=== PATIENT | female | born 1965 | race Caucasian/White ===

== ENCOUNTER 2024-01-05 13:41 | Outpatient (AMB) | payer OTHER, SELFPAY ==
--- NOTE | 2024-01-05 14:04 | HO.SPINEOV ---
Intake Visit Reasons: low back pain/sciatica Intake Note: Ms. Issa is here today c/o back pain. Allergies clavulanic acid [From Augmentin] Allergy (Unknown, Verified 01/05/24 14:09) Unknown Penicillins Allergy (Unknown, Verified 01/05/24 14:09) Unknown amoxicillin [From Augmentin] Allergy (Verified 01/05/24 14:09) Unknown levoquin Allergy (Uncoded 01/05/24 14:08) Unknown Assessment & Plan Assessment & Plan (1) Lumbar disc herniation: Code(s): M51.26 - Other intervertebral disc displacement, lumbar region Category: Medical Plan Dear Monica, Thank you for referring Mrs Issa to our office today. This is a 58-year-old female presents to the office today for evaluation of a left leg radiculopathy that started on October 27. She tells me she was leaning forward to put some makeup on felt some pain in her back. She had an important meeting to go to so she just carried on with things. She thought it might be a little bit better but a few days later she felt significant worsening of her pain but now also radiating down her left leg into her calf. She was actually in bed trying to lay down and became unable to stand. She had to have the ambulance called to get her out of bed. She was treated with pain medications including Vicodin, gabapentin as well as all the usual [id number] medications like Motrin, Tylenol etc.. She developed weakness of her left foot and numbness of her left foot during these events as well. She has had some relief of the pain but she is still dealing with constant daily pain down her leg going into her calf and foot. The weakness has not gotten worse but it is unchanged as well as the numbness going into the top of her foot and into her big toe. 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 She remains on the medications Vicodin gabapentin Tylenol, ice packs etc.. She had an MRI showing a herniated disc with L5 foraminal compression. PMH: She is otherwise healthy, history of anxiety, depression, low blood pressure, hysterectomy, kidney stones, but denies any heart attacks, strokes, liver disorders, kidney disorders, bleeding disorders, Social hx: She does not smoke, drink use any recreational drugs Medications: Lamictal, atorvastatin, Zoloft, magnesium, gabapentin and Vicodin Allergies: Penicillin, erythromycin, doxycycline, Augmentin Levaquin Physical exam: She is standing with assistance, unable to get up on the examining table without assistance. She has complete loss of movement of the extensor hallucis longus and 3/5 weakness of her left tibialis. Reflexes are intact at the patella and the Achilles. Imaging review: There is a lumbar MRI done in [facility]. It is of suboptimal quality but there appears to be an acute herniated disc fragment behind the body of L5 and on the axial imaging there appears to be a piece of it tucked up against the medial portion of the L5 nerve as it enters the foramen. There other degenerative changes. Impression: 58-year-old female presents with an acute L5 radiculopathy who appears to have fairly aggressive nerve injury related to a disc herniation which is coming out of the L5-S1 disc space. The imaging is suboptimal, I am not sure if it is motion artifact or the lack of depth of the imaging but there does appear to be a piece of disc behind the body of L5 and on the axial imaging a piece extending into the L5 foramen. Because of the weakness of her foot and the severity of her pain in addition to the failure of conservative treatment this is something Dr. Flores would typically offer the patient a left L5-S1 microdiskectomy. I will need to review this with him to decide the final approach but I think a standard midline approach would be reasonable. I do not think the disc extends out past the foramen. I have tentatively put her on the books for January 21 but will call her to confirm once I talked to him. I made it clear to her that the weakness and numbness in the foot is likely permanent. The objective of surgery would be to help the severe leg pain. I quoted 90% success rate. I will call her in a Medrol Dosepak just to try to see her through until the surgery. Pt was given risk and benefits of surgery including but not limited to infection, hematoma , nerve injury,durotomy, weakness,bowel/bladder injury, persistent pain, recurrent disc herniation as well as the option to continue with conservative treatment and patient wishes to proceed with surgery. Pt is aware they should stop their motrin, aspirin 7 days prior to surgery. All questions were answered to the best of our ability. If there is anything about this patients medical history that we have overlooked or concerns you have about us proceeding with surgery we would appreciate any input you can offer. Thank you for allowing us to care for your patient. The total time spent with this visit with this patient was 45 minutes reviewing history, physical exam, lumbar imaging review, and implementation of treatment plan or further diagnostic testing Isaac Flores MD,PhD [facility] Medications: New methylprednisolone take as directed on package 4 mg PO DAILY 21 ea 0RF Coding Level of Care Code New Pt Level 4 (09777) Diagnoses Lumbar disc herniation M51.26
== END 2024-01-05 16:44 | disposition home or self-care (01) ==
PROVIDERS: Referring Provider Specialist/Technologist Athletic Trainer; Visit Provider Physician Assistant
DX: M51.26 Other intervertebral disc displacement, lumbar region (principal)
CPT/HCPCS: 99204

== ENCOUNTER → 2024-01-05 13:41 | Outpatient (BNVA) | payer OTHER, SELFPAY | PROVIDERS: Visit Provider Physician Assistant ==

== ENCOUNTER 2024-01-22 07:49 | Day surgery (SDC) | payer OTHER, SELFPAY ==
[2024-01-14 10:08] VITALS: BMI 31.3
--- NOTE | ~2024-01-22 | FL_ITS ---
EXAMINATION: XR FLUOROSCOPY WITH IMAGES CLINICAL INFORMATION: L5-S1 microlumbar discectomy. COMPARISON: None available. TECHNIQUE: Fluoroscopy Supervised By: Dr. Omer Flores Fluoroscopy Time: 0 Seconds Cumulative Dose: 1.28 mGy-cm DAP: 0.290 Gy-cm2 Images: 1 FINDINGS: Intraoperative fluoroscopy and spot films were performed during a procedure in the OR. Probe is present at the L5-S1 disc space. Please correlate with Dr. Omer Flores' report for complete details. FL/FL guidance in OR IMPRESSION: Intraoperative fluoroscopy and spot films were obtained. Please see Dr. Omer Flores' report for complete details.
--- NOTE | 2024-01-22 07:37 | P.DS_ITS ---
DS: Providers Provider Date of Service: 01/22/24 Date of discharge: 01/22/24 Primary care physician: Deana Greene NP Admitting clinician: Keshawn Flores DS: Diagnosis Discharge Diagnosis (1) Lumbar disc herniation: Status: Acute DS: Summary Time Attestation Discharge Coordination Time (in mins): 5 Quality: Safe Use of Opioids Does Pt have an Active Cancer Diagnosis on the Problem List?: No Quality: Stroke Does the patient have a stroke diagnosis?: No Physical Exam Vital Signs: Vital Signs: BMI result Body Mass Index 31.3 Discharge Plan Discharge Patient Disposition: Home, Self-Care Referrals: Deana Greene NP [Primary Care Provider] - 1 Week Discharge Medications: New docusate sodium [Colace] 100 mg capsule 100 mg PO BID Qty: 20 0RF hydrocodone-acetaminophen 5-325 mg tablet 1 tab PO Q6H PRN (Reason: pain) Qty: 20 0RF Rx Instructions: Partial Fill upon patient request. Continued lamotrigine [Lamictal] 200 mg Tablet 200 mg PO BID atorvastatin 10 mg Tablet 10 mg PO BEDTIME hydrocodone-acetaminophen 5-325 mg Tablet 1 tab PO BID PRN (Reason: Pain) sertraline 100 mg Tablet 100 mg PO QAM lorazepam 0.5 mg Tablet 0.5 mg PO BID PRN (Reason: Anxiety) gabapentin 300 mg Capsule 300 mg PO BID sertraline 25 mg Tablet 25 mg PO QAM gabapentin 300 mg Capsule 600 mg PO BEDTIME magnesium 250 mg Tablet 500 mg PO BEDTIME solifenacin [Vesicare] 5 mg Tablet 5 mg PO QAM cholecalciferol (vitamin D3) [Vitamin D3] 50 mcg (2,000 unit) Capsule 50 mcg PO 3XW albuterol sulfate [Ventolin HFA] 90 mcg/actuation Hfa Aerosol Inhaler 2 puff INHALATION Q4-6H PRN (Reason: Shortness Of Breath Or Wheezing) Discharge Orders: Discharge Order (Routine); Ordered 01/22/24 Ordered By: Isaac Ha Diet: Advance to usual diet Activity on Discharge: As tolerated Activity Restrictions/Additional Instructions: After your spinal surgery we ask you to observe the following restrictions/guidelines: Activity: It is normal to feel some discomfort as you increase your activity, but that will improve with time. We ask you avoid heavy lifting or acitivities that cause pain. As a general rule, 8lbs is a safe limit for lifting right after surgery. Walk as much as you feel comfortable but not to exhaustion. You will feel extra tired the first few days after surgery. Stay well hydrated. It is OK to walk up and down stairs You may return to driving when you are off narcotics (such as vicodin, oxycodone, dilaudid, etc), and you are back to normal functional capacity. If you have any concerns please check with office before driving. Return to work is specific to each patient and each surgery, so please speak with your doctor/PA at first follow up. Please bring paperwork such as FMLA at that time if you need it filled out. Medications: For optimum pain control, it is best to start with a combination of 500 mg of Tylenol every 4 hours with 600 mg of Motrin every 8 hours, and use narcotics as needed in between for breakthrough pain. We will give you a short supply of narcotics after surgery (usually one weeks worth). If you need more please call the office but do not use more than prescribed. You will need to give our office 48 hours notice if you need narcotics refilled and we do not fill narcotics on weekends or evenings. If you are on a narcotic, it is a good idea to take a stool softener such as colace or senna to avoid constipation If you take blood thinner such as aspirin, Plavix, Coumadin, Effient, Eliquis etc for conditions such as Afib, DVT, Pulmonary embolus, coronary disease, stents etc please speak with your surgeon about specific details as to when you can resume these medications. You can resume NSAIDs on post op day 1 (eg: Motrin, Naproxen, etc). Follow up: Please call the office, , after surgery to arrange a 3 week follow up for wound check. Wound Care: You may remove your dressing on the first day after surgery. ?You may ?leave open to air. Please do not remove the steri strips underneath. they will fall off on their own in one week. IT IS NORMAL FOR THE WOUND TO OOZE OR BE BLOODY FOR A FEW DAYS AFTER SURGERY. ?IF THIS HAPPENS JUST PLACE NEW DRESSING OVER IT TO AVOID STAINING CLOTHES. You may shower on post op day # 1 We ask that you do not let the water soak the wound. If it does get wet, just towel dry lightly. Please do not scrub your incision or place any type of chemical/ointment on the wound. No tub baths, pools or jacuzzis for one month. If you have any leaking or redness from your wound, or fevers, please call office Print Language: Indonesian
[2024-01-22 08:17] VITALS: BMI 31.4
[2024-01-22 08:35] VITALS: BP 123/66; PULSE 93; RESP 16; TEMP 37.4; O2SAT 93
[2024-01-22] MEDS: Scopolamine 1.5 MG PATCH.TD.3 TRANSDERMA (08:47)
[2024-01-22] MEDS: methocarbamoL 750 MG TABLET PO (08:48)
[2024-01-22] MEDS: Lactated Ringers 1,000 ML 100 ML IVCONT (08:56)
[2024-01-22] MEDS: vancomycin HCL 1,000 MG in 0.9 % Sodium Chloride 250 ML 270 MG IV (10:04)
--- NOTE | 2024-01-22 10:11 | MHC.SHP ---
Pre-Procedural Eval Section A - 24 Hr Update-Section A only Date of Service: 01/22/24 Section B - Complete if H&P > 30 days Chief Complaint: Other intervertebral disc displacement, lumbar Details of Present Illness: Left lumbar radiculopathy Present Medications: see Short Stay Collaborative assessment Allergies: Allergies Allergy/AdvReac Type Severity Reaction Status Date / Time amoxicillin [From Augmentin] Allergy Severe Anaphylaxis Verified 01/14/24 09:49 azithromycin Allergy Severe Anaphylaxis Verified 01/14/24 09:49 citalopram Allergy Severe Vomiting Verified 01/14/24 09:49 clavulanic acid Allergy Severe Anaphylaxis Verified 01/14/24 09:49 [From Augmentin] codeine Allergy Severe Vomiting Verified 01/14/24 09:49 doxycycline Allergy Severe Anaphylaxis Verified 01/13/24 09:42 erythromycin base Allergy Severe Anaphylaxis Verified 01/14/24 09:49 levofloxacin [From Levaquin] Allergy Severe Anaphylaxis Verified 01/13/24 09:42 morphine Allergy Severe Anaphylaxis Verified 01/13/24 09:42 oxybutynin Allergy Severe Nausea Verified 01/14/24 09:49 Penicillins Allergy Severe Anaphylaxis Verified 01/13/24 09:42 bupropion [From Wellbutrin] Allergy Intermediate Anxiety Verified 01/14/24 09:49 celecoxib [From Celebrex] Allergy Intermediate Gastrointestinal Verified 01/14/24 09:49 Upset ciprofloxacin Allergy Intermediate Vomiting Verified 01/14/24 09:49 nortriptyline Allergy Intermediate Confusion Verified 01/14/24 09:49 Sulfa (Sulfonamide Allergy Intermediate Vomiting/di Verified 01/14/24 09:49 Antibiotics) arrhea topiramate [From Topamax] Allergy Intermediate renal stone Verified 01/14/24 09:49 Review of Systems Sugical H&P ROS: Negative: Constitution, Cardiovascular, Respiratory, Neurological, Psychiatric, Hem-Onc, Allergic/Immunologic, Gastrointestinal, Genitourinary, Integumentary, Endocrine and Eyes/Ears/Nose/Throat and Yes, Specify: Musculoskeletal (Left drop foot) Exam Surgical H&P Exam: Normal: HEENT, Normal: Heart, Normal: Lungs, Normal: Extremities, Normal: Abdomen and Normal: Skin and Significant Findings: Neurological (Left drop foot) Plan Diagnosis/Plan: Unchanged I have reviewed the history and physical and performed a pertinent physical examination on my patient. No changes have occurred unless specified. Left L5-S1 microdiskectomy Time Spent With Patient Time: Total time managing care of this patient today ___10_ minutes.
--- NOTE | 2024-01-22 10:40 | P.CONAN_ITS ---
Documented by User: Miriam Paez NP 01/21/24 11:53 HPI - Anesthesia Eval Consult details Narrative: 59yo F for L5-S1 MicroLumbar discectomy Medically optimized *Multiple Med Allergies* PONV PMFSH Active Problems Active Problems: All Active Problems Lumbar disc herniation (Acute) Past Medical History Medical History (Updated 01/22/24 @ 08:12 by Jenna Parker RN) Kidney stones Graves disease Heartburn Asthma PONV (postoperative nausea and vomiting) Elevated cholesterol Renal calculi Low blood pressure Anxiety Depression Back pain Surgical History Surgical History (Updated 01/22/24 @ 08:12 by Jenna Parker RN) Hx of appendectomy Hx of cystoscopy Hx of repair of left rotator cuff H/O colonoscopy Hx of hysterectomy Social History Social History Are you a primary animal care assistant to a significant other at home: No Do you presently have visiting nurse or other home services: No Patient Tobacco Use Status: Never used Tobacco Use of substances other than those prescribed or required for medical reasons: No Have you been hit, kicked, punched, or otherwise hurt by someone within the past year? If so, by whom?: No Are you DNR?: No Advance Directives: No (spouse is primary contact) Advance Directives Information Provided: Yes Advance Directives on File: No Recently lost weight without trying: No Eating poorly because of decreased appetite: No Nutrition Risks: No Nutritional Risk Patient : No (N/A) Poor oral hygiene: No (one cracked tooth left lower molar) Meds Allergies Allergy/AdvReac Type Severity Reaction Status Date / Time amoxicillin [From Augmentin] Allergy Severe Anaphylaxis Verified 01/14/24 09:49 azithromycin Allergy Severe Anaphylaxis Verified 01/14/24 09:49 citalopram Allergy Severe Vomiting Verified 01/14/24 09:49 clavulanic acid Allergy Severe Anaphylaxis Verified 01/14/24 09:49 [From Augmentin] codeine Allergy Severe Vomiting Verified 01/14/24 09:49 doxycycline Allergy Severe Anaphylaxis Verified 01/13/24 09:42 erythromycin base Allergy Severe Anaphylaxis Verified 01/14/24 09:49 levofloxacin [From Levaquin] Allergy Severe Anaphylaxis Verified 01/13/24 09:42 morphine Allergy Severe Anaphylaxis Verified 01/13/24 09:42 oxybutynin Allergy Severe Nausea Verified 01/14/24 09:49 Penicillins Allergy Severe Anaphylaxis Verified 01/13/24 09:42 bupropion [From Wellbutrin] Allergy Intermediate Anxiety Verified 01/14/24 09:49 celecoxib [From Celebrex] Allergy Intermediate Gastrointestinal Verified 01/14/24 09:49 Upset ciprofloxacin Allergy Intermediate Vomiting Verified 01/14/24 09:49 nortriptyline Allergy Intermediate Confusion Verified 01/14/24 09:49 Sulfa (Sulfonamide Allergy Intermediate Vomiting/di Verified 01/14/24 09:49 Antibiotics) arrhea topiramate [From Topamax] Allergy Intermediate renal stone Verified 01/14/24 09:49 Home Medications ?Medication ?Instructions ?Recorded ?Confirmed ?Last Taken ?Type atorvastatin 10 mg tablet 10 mg PO BEDTIME 01/13/24 01/14/24 Unknown History gabapentin 300 mg capsule 300 mg PO BID 01/13/24 01/22/24 01/22/24 06:30 History hydrocodone 5 mg-acetaminophen 325 1 tab PO BID PRN Pain 01/13/24 01/14/24 Unknown History mg tablet lamotrigine 200 mg tablet 200 mg PO BID 01/13/24 01/14/24 01/22/24 06:30 History (Lamictal) lorazepam 0.5 mg tablet 0.5 mg PO BID PRN Anxiety 01/13/24 01/14/24 01/22/24 06:30 History sertraline 100 mg tablet 100 mg PO QAM 01/13/24 01/14/24 Unknown History sertraline 25 mg tablet 25 mg PO QAM 01/13/24 01/14/24 Unknown History albuterol sulfate 90 mcg/actuation 2 puff inhalation Q4-6H PRN 01/14/24 01/14/24 Unknown History aerosol inhaler (Ventolin HFA) Shortness Of Breath Or Wheezing cholecalciferol (vitamin D3) 50 50 mcg PO 3XW 01/14/24 01/14/24 Unknown History mcg (2,000 unit) capsule (Vitamin D3) gabapentin 300 mg capsule 600 mg PO BEDTIME 01/14/24 01/14/24 Unknown History magnesium 250 mg tablet 500 mg PO BEDTIME 01/14/24 01/14/24 Unknown History solifenacin 5 mg tablet (Vesicare) 5 mg PO QAM 01/14/24 01/14/24 01/22/24 06:30 History Exam Height,Weight and Vital Signs: Height 4 ft 11 in Weight 70.307 kg Pertinent Lab Results Pertinent Lab Results: ok from outside facility Narrative Narrative: EKG NSR @ 78 Assessment and Plan Assessment Anesthesia Assessment: Chart Reviewed Documented by User: Edilia Remy, 01/22/24 10:41 PMFSH Past Medical History Medical History (Updated 01/22/24 @ 08:12 by Jenna Parker, THEO) Kidney stones Graves disease Heartburn Asthma PONV (postoperative nausea and vomiting) Elevated cholesterol Renal calculi Low blood pressure Anxiety Depression Back pain Family History Family history of problems with anesthesia: No Surgical History Surgical History (Updated 01/22/24 @ 08:12 by Jenna Parker RN) Hx of appendectomy Hx of cystoscopy Hx of repair of left rotator cuff H/O colonoscopy Hx of hysterectomy History of Problems with Anesthesia: Yes (PONV) Social History Social History Are you a primary animal care assistant to a significant other at home: No Do you presently have visiting nurse or other home services: No Patient Tobacco Use Status: Never used Tobacco Use of substances other than those prescribed or required for medical reasons: No Have you been hit, kicked, punched, or otherwise hurt by someone within the past year? If so, by whom?: No Are you DNR?: No Advance Directives: No (spouse is primary contact) Advance Directives Information Provided: Yes Advance Directives on File: No Recently lost weight without trying: No Eating poorly because of decreased appetite: No Nutrition Risks: No Nutritional Risk Patient : No (N/A) Poor oral hygiene: No (one cracked tooth left lower molar) Meds Allergies Allergy/AdvReac Type Severity Reaction Status Date / Time amoxicillin [From Augmentin] Allergy Severe Anaphylaxis Verified 01/14/24 09:49 azithromycin Allergy Severe Anaphylaxis Verified 01/14/24 09:49 citalopram Allergy Severe Vomiting Verified 01/14/24 09:49 clavulanic acid Allergy Severe Anaphylaxis Verified 01/14/24 09:49 [From Augmentin] codeine Allergy Severe Vomiting Verified 01/14/24 09:49 doxycycline Allergy Severe Anaphylaxis Verified 01/13/24 09:42 erythromycin base Allergy Severe Anaphylaxis Verified 01/14/24 09:49 levofloxacin [From Levaquin] Allergy Severe Anaphylaxis Verified 01/13/24 09:42 morphine Allergy Severe Anaphylaxis Verified 01/13/24 09:42 oxybutynin Allergy Severe Nausea Verified 01/14/24 09:49 Penicillins Allergy Severe Anaphylaxis Verified 01/13/24 09:42 bupropion [From Wellbutrin] Allergy Intermediate Anxiety Verified 01/14/24 09:49 celecoxib [From Celebrex] Allergy Intermediate Gastrointestinal Verified 01/14/24 09:49 Upset ciprofloxacin Allergy Intermediate Vomiting Verified 01/14/24 09:49 nortriptyline Allergy Intermediate Confusion Verified 01/14/24 09:49 Sulfa (Sulfonamide Allergy Intermediate Vomiting/di Verified 01/14/24 09:49 Antibiotics) arrhea topiramate [From Topamax] Allergy Intermediate renal stone Verified 01/14/24 09:49 Home Medications ?Medication ?Instructions ?Recorded ?Confirmed ?Last Taken ?Type atorvastatin 10 mg tablet 10 mg PO BEDTIME 01/13/24 01/14/24 Unknown History gabapentin 300 mg capsule 300 mg PO BID 01/13/24 01/22/24 01/22/24 06:30 History hydrocodone 5 mg-acetaminophen 325 1 tab PO BID PRN Pain 01/13/24 01/14/24 Unknown History mg tablet lamotrigine 200 mg tablet 200 mg PO BID 01/13/24 01/14/24 01/22/24 06:30 History (Lamictal) lorazepam 0.5 mg tablet 0.5 mg PO BID PRN Anxiety 01/13/24 01/14/24 01/22/24 06:30 History sertraline 100 mg tablet 100 mg PO QAM 01/13/24 01/14/24 Unknown History sertraline 25 mg tablet 25 mg PO QAM 01/13/24 01/14/24 Unknown History albuterol sulfate 90 mcg/actuation 2 puff inhalation Q4-6H PRN 01/14/24 01/14/24 Unknown History aerosol inhaler (Ventolin HFA) Shortness Of Breath Or Wheezing cholecalciferol (vitamin D3) 50 50 mcg PO 3XW 01/14/24 01/14/24 Unknown History mcg (2,000 unit) capsule (Vitamin D3) gabapentin 300 mg capsule 600 mg PO BEDTIME 01/14/24 01/14/24 Unknown History magnesium 250 mg tablet 500 mg PO BEDTIME 01/14/24 01/14/24 Unknown History solifenacin 5 mg tablet (Vesicare) 5 mg PO QAM 01/14/24 01/14/24 01/22/24 06:30 History Exam Exam Date and Time: January 22, 2024 1038 Height,Weight and Vital Signs: Height 4 ft 11 in Weight 70.307 kg Vital Signs Temperature 99.3 F 01/22/24 08:35 Pulse Rate 93 01/22/24 08:35 Respiratory Rate 16 01/22/24 08:35 Blood Pressure 123/66 01/22/24 08:35 Pulse Oximetry 93 01/22/24 08:35 Oxygen Delivery Method Room Air 01/22/24 08:35 Temperature 99.3 F 01/22/24 08:35 Pulse Rate 93 01/22/24 08:35 Respiratory Rate 16 01/22/24 08:35 Blood Pressure 123/66 01/22/24 08:35 Pulse Oximetry 93 01/22/24 08:35 Oxygen Delivery Method Room Air 01/22/24 08:35 Airway Mallampati Class: II TM Dist: >3cm Neck ROM: Full Loose/Missing/Broken Teeth: Yes (cracked molar left side bottom jaw) Heart: S1S2 Lungs: CTAB Assessment and Plan Assessment Anesthesia Assessment: Anesthesia Plan Discussed and Chart Reviewed Final Anesthetic Review Family History of Problems with Anesthesia: No History of Problems with Anesthesia: Yes (PONV) NPO: Yes ASA Class: II Final Preanesthetic Review: No Changes in Pt Med Stat, Meds/Allgs Chart Reviewed, Consent Obtained/Reviewed and Anes Risks/Benef Reviewed Patient Risk: Low Procedure Risk: Intermediate Anesthetic Plan Anesthetic Plan: GA and Agree w/ Assess. and Plan Disposition: Standard PACU
--- NOTE | 2024-01-22 11:55 | P.OP_ITS ---
Operative Note Operative Note Date of Service: 01/22/24 Narrative: Preoperative diagnosis: Left L5 r radiculopathy due to disc herniation Postoperative diagnosis: Same Procedure: Left L5-S1 lumbar microdiskectomy with microscope Surgeon: Keshawn Flores MD, PhD First Officer [employer] Instructor: blanka Constantino This 59-year-old female suffering from severe left L5 radiculopathy with pain and weakness. An MRI shows a small disc fragment migrated cranially and compressing the left L5 nerve root. The patient was offered a microdiskectomy to decompress the nerve root. The procedure complications were explained. The patient was consented. The patient was brought to the operating room and endotracheally intubated. The patient was turned in a prone position on the Darin frame. Prepping and draping was done followed by time-out. A mid lumbar incision was made followed by release of the paravertebral muscles on the left side to expose the L5-S1 interspace. An intraoperative x-rays obtained to confirm the correct level. The microscope was brought in. A L5 laminotomy was done followed by opening of the flavum ligament. The S1 nerve root was identified as well as the L5-S1 disc space. I was able to mobilize the cranially migrated fragment with a nerve hook. Eventually I was able to retrieve it with a straight and curved pituitary which led to an excellent decompression of the L5 nerve root. The fragment was originally situated in the axilla of the L5 nerve root. Hemostasis was done. The microscope was removed. Marcaine was injected intramuscularly.The incision was closed in two layers. Steri-Strips used to approximate seizure. An op-site were taken there was used to cover the incision. All sponge and needle counts were correct. Patient was extubated and transported in stable condition to recovery room. this procedure was done with the aid of a physician blood donor unit assistant who performed the initial exposure until the microscope was brought in and performed the closure of the incision. Anesthesia: General Blood loss: 10 mL Complications: None Specimen: None Surgical time: 35 minutes Disposition: Discharge home
[2024-01-22 12:15] VITALS: BP 122/58; PULSE 109; RESP 18; TEMP 36.3; O2SAT 97
[2024-01-22 12:20] VITALS: BP 119/66; PULSE 110; RESP 16; O2SAT 97
[2024-01-22 12:25] VITALS: BP 129/64; PULSE 108; RESP 16; O2SAT 97
[2024-01-22 12:30] VITALS: BP 122/67; PULSE 96; RESP 16; O2SAT 97
[2024-01-22] MEDS: oxyCODONE HCl Immed Release 5 MG TABLET PO (12:40)
[2024-01-22 12:45] VITALS: BP 127/75; PULSE 90; RESP 16; TEMP 36.1; O2SAT 97
== END 2024-01-22 13:51 | disposition home or self-care (01) ==
LOC: HO.SSS 07:50
PROVIDERS: PCP Family Medicine; Visit Provider Neurological Surgery
PROC: (CPT 63030; principal; 2024-01-22 11:10)
DX: M51.26 Other intervertebral disc displacement, lumbar region (principal); R53.1 Weakness; R20.0 Anesthesia of skin; I95.9 Hypotension, unspecified; F32.A Depression, unspecified; F41.9 Anxiety disorder, unspecified; Z79.899 Other long term (current) drug therapy; Z88.0 Allergy status to penicillin; Z88.1 Allergy status to other antibiotic agents; Z87.442 Personal history of urinary calculi; Z98.890 Other specified postprocedural states
CPT/HCPCS: 63030; J0131; J0171; J1100; J1200; J1885; J2250; J2371; J2405; J2704; J3010; J3370

== ENCOUNTER → 2024-01-22 07:49 | Outpatient (BNV) | payer OTHER, SELFPAY | PROVIDERS: PCP Family Medicine; Visit Provider Neurological Surgery | DX: M51.26 Other intervertebral disc displacement, lumbar region (principal) | CPT/HCPCS: 63030; 99499 ==

== ENCOUNTER 2024-02-09 09:03 | Outpatient (AMB) | payer OTHER, SELFPAY ==
--- NOTE | 2024-02-09 09:04 | A.SPINEOV_ITS ---
Intake Visit Reasons: 1st post op Intake Note: Ms. Issa is here today for her 1st Post-op visit. 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 Allergies amoxicillin [From Augmentin] Allergy (Severe, Verified 02/09/24 09:08) Anaphylaxis azithromycin Allergy (Severe, Verified 02/09/24 09:08) Anaphylaxis citalopram Allergy (Severe, Verified 02/09/24 09:08) Vomiting clavulanic acid [From Augmentin] Allergy (Severe, Verified 02/09/24 09:08) Anaphylaxis codeine Allergy (Severe, Verified 02/09/24 09:08) Vomiting doxycycline Allergy (Severe, Verified 02/09/24 09:08) Anaphylaxis erythromycin base Allergy (Severe, Verified 02/09/24 09:08) Anaphylaxis levofloxacin [From Levaquin] Allergy (Severe, Verified 02/09/24 09:08) Anaphylaxis morphine Allergy (Severe, Verified 02/09/24 09:08) Anaphylaxis oxybutynin Allergy (Severe, Verified 02/09/24 09:08) Nausea Penicillins Allergy (Severe, Verified 02/09/24 09:08) Anaphylaxis bupropion [From Wellbutrin] Allergy (Intermediate, Verified 02/09/24 09:08) Anxiety celecoxib [From Celebrex] Allergy (Intermediate, Verified 02/09/24 09:08) Gastrointestinal Upset ciprofloxacin Allergy (Intermediate, Verified 02/09/24 09:08) Vomiting nortriptyline Allergy (Intermediate, Verified 02/09/24 09:08) Confusion Sulfa (Sulfonamide Antibiotics) Allergy (Intermediate, Verified 02/09/24 09:08) Vomiting/diarrhea topiramate [From Topamax] Allergy (Intermediate, Verified 02/09/24 09:08) renal stone Assessment & Plan Assessment & Plan (1) S/P lumbar microdiscectomy: Code(s): Z98.890 - Other specified postprocedural states Category: Surgical Plan Procedure: L5-S1 Microdiskectomy Bogdan comes in today for her 1st postoperative visit. She reports she is very satisfied with the surgery and feels much better than she did preoperatively. She states she is up walking around and completing the majority of her ADLs. She reports that she no longer suffers from her left-sided shooting radiculopathy. She does still have trouble with movement of her left extensor hallicus longus, and reports that she has difficulties with temperature sensation [id number] on the left side. She is having a difficult time adjusting to lack of movement of her left great toe. We discussed the possibility of an AFO brace, however this may be overkill at this time as she has no other issues with dorsiflexion. 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 We discussed this, she did not seem interested at this time. She may be able to accommodate the great toe with her other toes. She is still very early post-op. No new neurological deficits. Patient is able to ambulate well, rises from a seated position without difficulty. Incision site is closed, well healing, with no signs of drainage. We will follow-up with the patient in 6 weeks for their 2nd postoperative visit. At that time we will get x-rays to review with the patient. Isaac Flores MD,PhD [facility] Coding Level of Care Code Global (38446) Diagnoses S/P lumbar microdiscectomy Z98.890
== END 2024-02-09 09:25 | disposition home or self-care (01) ==
PROVIDERS: PCP Family Medicine; Visit Provider Physician Assistant
DX: Z98.890 Other specified postprocedural states (principal)
CPT/HCPCS: 99024

== ENCOUNTER → 2024-02-09 09:03 | Outpatient (BNVA) | payer OTHER, SELFPAY | PROVIDERS: PCP Family Medicine; Visit Provider Physician Assistant ==

== ENCOUNTER 2024-03-22 12:59 | Outpatient (REF) | payer OTHER, SELFPAY ==
--- NOTE | ~2024-03-22 | XR_ITS ---
EXAMINATION: XR LUMBOSACRAL SPINE CLINICAL INFORMATION: Z98.890 - Other specified postprocedural states COMPARISON: None available. TECHNIQUE: 4 views of the lumbar spine, inclusive of flexion and extension views, were obtained. FINDINGS: There is no fracture, traumatic malalignment, or suspicious focal bony lesion. There is normal bony mineralization. There is been a left hemilaminotomy at L5-S1. There is no significant scoliosis. There is a normal lumbar lordosis. Neutral view demonstrates no evidence of subluxation. Flexion and extension views demonstrate no evidence of worsening or developing subluxation. There is mild generalized disc degeneration, with moderate degeneration at L2-3. There are degenerative facet changes L4-S1. SI joints appear normal. No soft tissue abnormality appreciated. XR/XR lumbar spine 4V min IMPRESSION: 1. No acute findings lumbar spine. 2. Mild lumbar spondylosis most significant at L2-3. 3. No subluxation, or evidence of instability on flexion-extension views. 4. Left hemilaminotomy noted L5-S1. Electronically signed by: Marquis Byrne MD 06/01/2024 09:17 AM [facility]
== END 2024-03-22 13:00 | disposition home or self-care (01) ==
LOC: HO.HOSX 12:59
PROVIDERS: PCP Family Medicine; Visit Provider Physician Assistant
DX: Z98.890 Other specified postprocedural states (principal)
CPT/HCPCS: 72110

== ENCOUNTER → 2024-03-22 14:39 | Outpatient (BNV) | payer OTHER, SELFPAY | PROVIDERS: PCP Family Medicine; Visit Provider Radiology Diagnostic Radiology | DX: M47.816 Spondylosis without myelopathy or radiculopathy, lumbar region (principal) | CPT/HCPCS: 72110 ==

== ENCOUNTER 2024-03-22 15:01 | Outpatient (AMB) | payer OTHER, SELFPAY ==
--- NOTE | 2024-03-22 15:14 | HO.SPINEOV ---
Intake Visit Reasons: 2nd post op Intake Note: Ms. Issa is here today for her 2nd post-op. 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 Allergies amoxicillin [From Augmentin] Allergy (Severe, Verified 02/09/24 09:08) Anaphylaxis azithromycin Allergy (Severe, Verified 02/09/24 09:08) Anaphylaxis citalopram Allergy (Severe, Verified 02/09/24 09:08) Vomiting clavulanic acid [From Augmentin] Allergy (Severe, Verified 02/09/24 09:08) Anaphylaxis codeine Allergy (Severe, Verified 02/09/24 09:08) Vomiting doxycycline Allergy (Severe, Verified 02/09/24 09:08) Anaphylaxis erythromycin base Allergy (Severe, Verified 02/09/24 09:08) Anaphylaxis levofloxacin [From Levaquin] Allergy (Severe, Verified 02/09/24 09:08) Anaphylaxis morphine Allergy (Severe, Verified 02/09/24 09:08) Anaphylaxis oxybutynin Allergy (Severe, Verified 02/09/24 09:08) Nausea Penicillins Allergy (Severe, Verified 02/09/24 09:08) Anaphylaxis bupropion [From Wellbutrin] Allergy (Intermediate, Verified 02/09/24 09:08) Anxiety celecoxib [From Celebrex] Allergy (Intermediate, Verified 02/09/24 09:08) Gastrointestinal Upset ciprofloxacin Allergy (Intermediate, Verified 02/09/24 09:08) Vomiting nortriptyline Allergy (Intermediate, Verified 02/09/24 09:08) Confusion Sulfa (Sulfonamide Antibiotics) Allergy (Intermediate, Verified 02/09/24 09:08) Vomiting/diarrhea topiramate [From Topamax] Allergy (Intermediate, Verified 02/09/24 09:08) renal stone Assessment & Plan Assessment & Plan (1) Lumbar disc herniation: Code(s): M51.26 - Other intervertebral disc displacement, lumbar region Category: Medical Plan Mrs Issa is 2 months out from her microdiskectomy. She is seen great relief from the pain in her left leg but unfortunately still continues to have weakness of her extensor hallucis longus as well as dysesthesias on the top of her left foot, primarily interpreted as temperature issues. She has getting an AFO this week. She continues to walk and tries to do as much exercise as she can. She has fallen a few times because of the lack of control of her big toe. We discussed activity guidelines, restrictions and expectations after lumbar microdiskectomy. I am hopeful that maybe some of the strength will come back in the toe but as we talked about before surgery it is very unpredictable so obviously there is no way to know. She will call us if she needs us down the road. Isaac Flores MD, PhD [facility] Orders: Orders XR lumbar spine 4V min Today Z98.890 - Other specified postprocedural states Coding Level of Care Code Global (35535) Diagnoses Lumbar disc herniation M51.26
== END 2024-03-22 15:59 | disposition home or self-care (01) ==
PROVIDERS: PCP Family Medicine; Visit Provider Physician Assistant
DX: M51.26 Other intervertebral disc displacement, lumbar region (principal)
CPT/HCPCS: 99024